=== PATIENT | male | born 1980 | race Caucasian/White ===

== ENCOUNTER 2017-04-28 19:27 | Emergency (ER) | payer OTHER ==
[~2017-04-28] VITALS: Ht 165.1 cm; Wt 97.5 kg
[~2017-04-28 19:27] MED LIST: ALBUTEROL SULF8.5 GM IH; AMOXICILLIN500 M1 PO; AUGMENTIN875 MG PO; BENTYL10 MG PO; CLOTRIM ANTIFUN15 GM TP; FLEXERIL5 MG PO; FLONASE16 G1 BOTH NARES; METHADONE10 MG PO; NAPROSYN500 MG PO; TORADOL10 MG PO; ZANTAC150 MG PO; ZOFRAN4 MG PO; ZYRTEC10 M2 PO
[2017-04-28 20:16] LABS: HEMATOCRIT 50.3 % (38.0-50.0); MCH 30.9 PG (29.0-34.0); MCHC 35.6 G/DL (30.0-36.0); MCV 86.7 FL (86-99); MEAN PLAT.VOLUME 9.9 uM^3 (9.0-12.4); PLATELET COUNT 231 K/uL (156-360); RBC DIS.WIDTH-CV 12.5 % (11.8-14.6); RBC DIS.WIDTH-SD 39.2 % (39-53); WHITE BLOOD COUNT 14.9 K/uL (4.1-10.2)
[2017-04-28 20:27] LABS: CHLORIDE 104 mEq/L (99-109); SODIUM 136 mEq/L (136-147)
[2017-04-28 20:29] LABS: GLUCOSE 102 mg/dL (70-99)
[2017-04-28 20:30] LABS: ANION GAP 13 MEQ/L (2-14)
[2017-04-28 20:33] LABS: GFR ESTIMATE (CALCULATED) > 59 mL/min/
[2017-04-28 20:34] LABS: UREA NITROGEN (BUN) 13 mg/dL (9-23)
[2017-04-28 20:40] LABS: TROP-I INTERPRETATION NEGATIVE; TROPONIN-I < 0.01 ng/mL (0.0-0.30)
[2017-04-28 23:39] LABS: TROP-I INTERPRETATION NEGATIVE; TROPONIN-I < 0.01 ng/mL (0.0-0.30)
[2017-04-28] MEDS ORDERED: ATIVAN0.5 MG PO (23:48)
[2017-04-29 00:41] VITALS: BP 134/93
== END 2017-04-29 00:43 | disposition home or self-care (01) ==
LOC: EME 19:27
PROVIDERS: Emergency Medicine
DX: R07.9 Chest pain, unspecified (principal); F41.9 Anxiety disorder, unspecified; K21.9 Gastro-esophageal reflux disease without esophagitis; F17.200 Nicotine dependence, unspecified, uncomplicated
CPT/HCPCS: 71020; 80048; 84484; 85027; 93005; 99281; 99284

== ENCOUNTER 2017-05-06 20:51 | Emergency (ER) | payer OTHER ==
[~2017-05-06] VITALS: Ht 165.1 cm; Wt 98.3 kg
[~2017-05-06 20:51] MED LIST changes: +ATIVAN0.5 MG PO
[2017-05-06 21:23] LABS: HEMATOCRIT 49.2 % (38.0-50.0); MCH 30.4 PG (29.0-34.0); MCHC 34.6 G/DL (30.0-36.0); MCV 87.9 FL (86-99); MEAN PLAT.VOLUME 10.2 uM^3 (9.0-12.4); PLATELET COUNT 216 K/uL (156-360); RBC DIS.WIDTH-CV 12.6 % (11.8-14.6); RBC DIS.WIDTH-SD 40.5 % (39-53)
[2017-05-06 21:55] LABS: CHLORIDE 106 mEq/L (99-109); SODIUM 140 mEq/L (136-147)
[2017-05-06 21:56] LABS: GLUCOSE 97 mg/dL (70-99)
[2017-05-06 21:58] LABS: ANION GAP 14 MEQ/L (2-14)
[2017-05-06 22:00] LABS: GFR ESTIMATE (CALCULATED) > 59 mL/min/
[2017-05-06 22:01] LABS: TROP-I INTERPRETATION NEGATIVE; TROPONIN-I < 0.01 ng/mL (0.0-0.30); UREA NITROGEN (BUN) 13 mg/dL (9-23)
[2017-05-06 23:55] VITALS: BP 134/102
== END 2017-05-06 23:55 | disposition home or self-care (01) ==
LOC: EME 20:51
DX: R07.9 Chest pain, unspecified (principal); F41.9 Anxiety disorder, unspecified; F17.200 Nicotine dependence, unspecified, uncomplicated
CPT/HCPCS: 71020; 80048; 84484; 85027; 93005; 99281; 99283

== ENCOUNTER 2017-06-26 23:57 | Emergency (ER) | payer OTHER ==
[~2017-06-26] VITALS: Ht 165.1 cm; Wt 97.8 kg
[2017-06-27 00:50] LABS: HEMATOCRIT 51.7 % (38.0-50.0); MCH 31.1 PG (29.0-34.0); MCHC 34.8 G/DL (30.0-36.0); MCV 89.4 FL (86-99); MEAN PLAT.VOLUME 10.6 uM^3 (9.0-12.4); PLATELET COUNT 214 K/uL (156-360); RBC DIS.WIDTH-CV 12.8 % (11.8-14.6); RBC DIS.WIDTH-SD 41.9 % (39-53); RED BLOOD COUNT 5.78 M/uL (4.00-5.50); WHITE BLOOD COUNT 11.7 K/uL (4.1-10.2)
[2017-06-27 00:57] LABS: CHLORIDE 107 mEq/L (99-109); SODIUM 140 mEq/L (136-147)
[2017-06-27 00:59] LABS: GLUCOSE 123 mg/dL (70-99)
[2017-06-27 01:01] LABS: ANION GAP 10 MEQ/L (2-14)
[2017-06-27 01:03] LABS: GFR ESTIMATE (CALCULATED) > 59 mL/min/
[2017-06-27 01:04] LABS: UREA NITROGEN (BUN) 15 mg/dL (9-23)
[2017-06-27 01:10] LABS: TROP-I INTERPRETATION NEGATIVE; TROPONIN-I < 0.01 ng/mL (0.0-0.30)
[2017-06-27] MEDS ORDERED: LISINOPRIL-HCT1 EACH PO (02:26)
[2017-06-27 02:56] VITALS: BP 141/105
== END 2017-06-27 02:56 | disposition home or self-care (01) ==
LOC: EME 23:57
DX: R51 Headache (principal); I10 Essential (primary) hypertension; F41.9 Anxiety disorder, unspecified; Z72.0 Tobacco use
CPT/HCPCS: 70450; 71020; 80048; 84443; 84484; 85027; 93005; 99281; 99284; J1885

== ENCOUNTER 2017-07-07 21:39 | Emergency (ER) | payer OTHER ==
[~2017-07-07] VITALS: Ht 165.1 cm; Wt 97.7 kg
[~2017-07-07 21:39] MED LIST changes: +LISINOPRIL-HCT1 EACH PO
[2017-07-07 22:14] LABS: HEMATOCRIT 50.7 % (38.0-50.0); MCH 31.6 PG (29.0-34.0); MCHC 35.9 G/DL (30.0-36.0); MEAN PLAT.VOLUME 10.8 uM^3 (9.0-12.4); PLATELET COUNT 240 K/uL (156-360); RBC DIS.WIDTH-CV 12.3 % (11.8-14.6); RED BLOOD COUNT 5.76 M/uL (4.00-5.50); WHITE BLOOD COUNT 14.9 K/uL (4.1-10.2)
[2017-07-07 22:24] LABS: CHLORIDE 103 mEq/L (99-109); POTASSIUM 3.9 mEq/L (3.7-5.4); SODIUM 136 mEq/L (136-147)
[2017-07-07 22:26] LABS: GLUCOSE 98 mg/dL (70-99)
[2017-07-07 22:27] LABS: ANION GAP 10 MEQ/L (2-14)
[2017-07-07 22:29] LABS: GFR ESTIMATE (CALCULATED) > 59 mL/min/
[2017-07-07 22:31] LABS: UREA NITROGEN (BUN) 19 mg/dL (9-23)
[2017-07-07 22:37] LABS: TROP-I INTERPRETATION NEGATIVE; TROPONIN-I < 0.01 ng/mL (0.0-0.30)
[2017-07-07 23:32] LABS: D-DIMER ELISA < 150.00 ng/mLDDU (<230)
[2017-07-08 01:19] LABS: TROP-I INTERPRETATION NEGATIVE; TROPONIN-I < 0.01 ng/mL (0.0-0.30)
[2017-07-08 01:34] VITALS: BP 117/80
== END 2017-07-08 01:35 | disposition home or self-care (01) ==
LOC: EME 21:39
PROVIDERS: Physician Assistant
DX: R07.89 Other chest pain (principal); I10 Essential (primary) hypertension; G47.30 Sleep apnea, unspecified; F41.9 Anxiety disorder, unspecified; Z72.0 Tobacco use
CPT/HCPCS: 71020; 80048; 84484; 85027; 85379; 93005; 99281; 99284

== ENCOUNTER 2017-08-01 22:33 | Emergency (ER) | payer OTHER ==
[~2017-08-01] VITALS: Ht 165.1 cm; Wt 97.1 kg
[2017-08-01 23:57] LABS: HEMATOCRIT 47.6 % (38.0-50.0); MCH 30.7 PG (29.0-34.0); MCHC 35.1 G/DL (30.0-36.0); MCV 87.5 FL (86-99); MEAN PLAT.VOLUME 10.7 uM^3 (9.0-12.4); PLATELET COUNT 214 K/uL (156-360); RBC DIS.WIDTH-CV 12.3 % (11.8-14.6); RBC DIS.WIDTH-SD 39.2 % (39-53); RED BLOOD COUNT 5.44 M/uL (4.00-5.50); WHITE BLOOD COUNT 10.7 K/uL (4.1-10.2)
[2017-08-02 00:35] LABS: TROP-I INTERPRETATION NEGATIVE; TROPONIN-I < 0.01 ng/mL (0.0-0.30)
[2017-08-02 00:43] LABS: CHLORIDE 105 mEq/L (99-109); POTASSIUM 3.5 mEq/L (3.7-5.4); SODIUM 138 mEq/L (136-147)
[2017-08-02 00:45] LABS: GLUCOSE 114 mg/dL (70-99)
[2017-08-02 00:46] LABS: ANION GAP 10 MEQ/L (2-14)
[2017-08-02 00:49] LABS: GFR ESTIMATE (CALCULATED) > 59 mL/min/ (58.99-99999)
[2017-08-02 00:50] LABS: UREA NITROGEN (BUN) 18 mg/dL (9-23)
[2017-08-02] MEDS ORDERED: PROVENTIL HFA6.7 GM IH (01:24)
[2017-08-02] MEDS ORDERED: PREDNISONE50 MG PO (01:24)
[2017-08-02 02:17] VITALS: BP 110/72
== END 2017-08-02 02:17 | disposition home or self-care (01) ==
LOC: EME 22:33
DX: J45.909 Unspecified asthma, uncomplicated (principal); R07.9 Chest pain, unspecified; F17.200 Nicotine dependence, unspecified, uncomplicated; I10 Essential (primary) hypertension; F41.9 Anxiety disorder, unspecified
CPT/HCPCS: 71020; 80048; 84484; 85027; 93005; 94640; 99281; 99285; J7512

== ENCOUNTER 2017-08-09 18:24 | Emergency (ER) | payer OTHER ==
[~2017-08-09] VITALS: Ht 165.1 cm; Wt 98.0 kg
[~2017-08-09 18:24] MED LIST changes: +PREDNISONE50 MG PO; +PROVENTIL HFA6.7 GM IH
[2017-08-10 03:05] LABS: BASOPHIL (%) 0.3 % (0-1); BASOPHIL COUNT 0.1 K/uL (0-0.1); EOSINOPHIL (%) 1.1 % (0-5); EOSINOPHIL COUNT 0.2 K/uL (0-0.3); HEMATOCRIT 49.6 % (38.0-50.0); HEMOGLOBIN 17.7 G/DL (12.5-16.6); IMMATURE GRANULOCYTE (%) 0.6 % (0.0-0.7); LYMPHOCYTE (%) 30.4 % (15-42); LYMPHOCYTE COUNT 5.4 K/uL (1.0-2.8); MCHC 35.7 G/DL (30.0-36.0); MCV 86.9 FL (86-99); MONOCYTE (%) 8.8 % (3-12); MONOCYTE COUNT 1.6 K/uL (0-0.8); NEUTROPHIL (%) 58.8 % (45-76); NEUTROPHIL COUNT 10.4 K/uL (1.8-6.4); PLATELET COUNT 250 K/uL (156-360); RBC DIS.WIDTH-CV 12.6 % (11.8-14.6); RBC DIS.WIDTH-SD 39.2 % (39-53); RED BLOOD COUNT 5.71 M/uL (4.00-5.50); WHITE BLOOD COUNT 17.8 K/uL (4.1-10.2)
[2017-08-10 03:15] LABS: D-DIMER ELISA < 150.00 ng/mLDDU (<230)
[2017-08-10 03:16] LABS: CHLORIDE 97 mEq/L (99-109); POTASSIUM 3.3 mEq/L (3.7-5.4); SODIUM 137 mEq/L (136-147)
[2017-08-10 03:18] LABS: GLUCOSE 119 mg/dL (70-99)
[2017-08-10 03:22] LABS: GFR ESTIMATE (CALCULATED) > 59 mL/min/ (58.99-99999)
[2017-08-10 03:23] LABS: UREA NITROGEN (BUN) 22 mg/dL (9-23)
[2017-08-10 03:26] LABS: TROP-I INTERPRETATION NEGATIVE; TROPONIN-I < 0.01 ng/mL (0.0-0.30)
[2017-08-10] MEDS ORDERED: AUGMENTIN875 MG PO (04:42)
[2017-08-10] MEDS ORDERED: FIORICET 50-301 EAC1 PO (04:42)
[2017-08-10 04:52] VITALS: BP 151/103
== END 2017-08-10 04:53 | disposition home or self-care (01) ==
LOC: EME 18:24
PROVIDERS: Emergency Medicine
DX: J01.90 Acute sinusitis, unspecified (principal); R07.9 Chest pain, unspecified; I10 Essential (primary) hypertension; F41.9 Anxiety disorder, unspecified; Z72.0 Tobacco use
CPT/HCPCS: 71046; 80048; 84484; 85025; 85379; 93005; 99281; 99284

== ENCOUNTER 2017-08-29 00:55 | Emergency (ER) | payer OTHER ==
[~2017-08-29] VITALS: Ht 165.1 cm; Wt 98.7 kg
[~2017-08-29 00:55] MED LIST changes: +FIORICET 50-301 EAC1 PO
[2017-08-29 01:49] LABS: HEMATOCRIT 50.6 % (38.0-50.0); HEMOGLOBIN 17.7 G/DL (12.5-16.6); MCH 31.3 PG (29.0-34.0); MCV 89.6 FL (86-99); PLATELET COUNT 217 K/uL (156-360); RBC DIS.WIDTH-CV 12.8 % (11.8-14.6); RBC DIS.WIDTH-SD 41.9 % (39-53); RED BLOOD COUNT 5.65 M/uL (4.00-5.50); WHITE BLOOD COUNT 10.3 K/uL (4.1-10.2)
[2017-08-29 02:02] LABS: ALBUMIN 4.4 g/dL (3.2-4.8)
[2017-08-29 02:03] LABS: CHLORIDE 104 mEq/L (99-109); POTASSIUM 4.4 mEq/L (3.7-5.4); SODIUM 138 mEq/L (136-147)
[2017-08-29 02:05] LABS: GLUCOSE 96 mg/dL (70-99); TOTAL PROTEIN 7.2 g/dL (6.4-8.3)
[2017-08-29 02:07] LABS: TOTAL BILIRUBIN 0.4 mg/dL (0.0-1.0)
[2017-08-29 02:08] LABS: ALKALINE PHOSPHATASE 59 IU/L (3-129)
[2017-08-29 02:09] LABS: GFR ESTIMATE (CALCULATED) > 59 mL/min/ (58.99-99999)
[2017-08-29 02:10] LABS: AST (GOT) 17 IU/L (2-34); UREA NITROGEN (BUN) 18 mg/dL (9-23)
[2017-08-29 02:11] LABS: ALT (GPT) 30 IU/L (3-49)
[2017-08-29 05:30] LABS: APPEARANCE CLEAR ((CLEAR)); BILIRUBIN NEGATIVE; BLOOD NEGATIVE; COLOR YELLOW ((YELLOW)); GLUCOSE (STRIP) NEGATIVE; KETONES NEGATIVE; LEUKOCYTES NEGATIVE; NITRITE NEGATIVE; PROTEIN (STRIP) NEGATIVE; UCUL ADDED? NO; UROBILINOGEN 0.2 MG/DL (0.2-1.0)
[2017-08-29 06:31] VITALS: BP 115/78
== END 2017-08-29 06:32 | disposition home or self-care (01) ==
LOC: EME 00:55
DX: K62.5 Hemorrhage of anus and rectum (principal); I10 Essential (primary) hypertension; F41.9 Anxiety disorder, unspecified; F17.200 Nicotine dependence, unspecified, uncomplicated
CPT/HCPCS: 74177; 80053; 81003; 85027; 99281; 99285; J7030

== ENCOUNTER 2017-09-13 12:18 | Emergency (ER) | payer OTHER ==
[~2017-09-13] VITALS: Ht 165.1 cm; Wt 98.9 kg
[2017-09-13 12:49] LABS: HEMOGLOBIN 17.9 G/DL (12.5-16.6); MCH 31.5 PG (29.0-34.0); MCHC 35.8 G/DL (30.0-36.0); PLATELET COUNT 222 K/uL (156-360); RBC DIS.WIDTH-CV 12.6 % (11.8-14.6); RBC DIS.WIDTH-SD 40.9 % (39-53); RED BLOOD COUNT 5.68 M/uL (4.00-5.50); WHITE BLOOD COUNT 11.6 K/uL (4.1-10.2)
[2017-09-13 13:01] LABS: CHLORIDE 104 mEq/L (99-109); SODIUM 137 mEq/L (136-147)
[2017-09-13 13:03] LABS: GLUCOSE 111 mg/dL (70-99)
[2017-09-13 13:06] LABS: GFR ESTIMATE (CALCULATED) > 59 mL/min/ (58.99-99999)
[2017-09-13 13:07] LABS: UREA NITROGEN (BUN) 13 mg/dL (9-23)
[2017-09-13 13:12] LABS: TROP-I INTERPRETATION NEGATIVE; TROPONIN-I < 0.01 ng/mL (0.0-0.30)
[2017-09-13 15:56] VITALS: BP 142/94
== END 2017-09-13 15:58 | disposition home or self-care (01) ==
LOC: EME 12:18
DX: R51 Headache (principal); I10 Essential (primary) hypertension; F17.200 Nicotine dependence, unspecified, uncomplicated; F41.9 Anxiety disorder, unspecified
CPT/HCPCS: 70450; 71046; 80048; 84484; 85027; 93005; 99281; 99284

== ENCOUNTER 2017-10-03 10:38 | Emergency (ER) | payer OTHER ==
[~2017-10-03] VITALS: Ht 165.1 cm; Wt 97.9 kg
[2017-10-03 11:04] VITALS: BP 136/96
== END 2017-10-03 12:08 | disposition left against medical advice (07) ==
LOC: EME 10:38
DX: K92.1 Melena (principal); Z53.21 Procedure and treatment not carried out due to patient leaving prior to being seen by health care provider

== ENCOUNTER 2017-10-05 04:54 | Emergency (ER) | payer OTHER ==
[~2017-10-05] VITALS: Ht 165.1 cm; Wt 99.3 kg
[2017-10-05] MEDS ORDERED: NAPROSYN500 MG PO (06:34)
[2017-10-05] MEDS ORDERED: LIDOCAINE20 MG/1 M5 PO (06:34)
[2017-10-05 06:55] VITALS: BP 139/89
== END 2017-10-05 06:56 | disposition home or self-care (01) ==
LOC: EME 04:54
DX: J02.9 Acute pharyngitis, unspecified (principal); R51 Headache; F17.200 Nicotine dependence, unspecified, uncomplicated
CPT/HCPCS: 87651 90; 99281; 99284

== ENCOUNTER 2017-10-30 23:58 | Emergency (ER) | payer OTHER ==
[~2017-10-30] VITALS: Ht 165.1 cm; Wt 98.8 kg
[~2017-10-30 23:58] MED LIST changes: +LIDOCAINE20 MG/1 M5 PO
[2017-10-31 00:04] VITALS: BP 146/96
== END 2017-10-31 00:48 | disposition left against medical advice (07) ==
LOC: EME 23:58
DX: R07.81 Pleurodynia (principal); R07.1 Chest pain on breathing; Z53.21 Procedure and treatment not carried out due to patient leaving prior to being seen by health care provider
CPT/HCPCS: 93005

== ENCOUNTER 2017-11-09 23:47 | Emergency (ER) | payer OTHER ==
[~2017-11-09] VITALS: Ht 165.1 cm; Wt 99.4 kg
[2017-11-10 00:34] LABS: BASOPHIL (%) 0.5 % (0-1); BASOPHIL COUNT 0.1 K/uL (0-0.1); EOSINOPHIL (%) 1.5 % (0-5); EOSINOPHIL COUNT 0.2 K/uL (0-0.3); HEMATOCRIT 50.4 % (38.0-50.0); HEMOGLOBIN 17.6 G/DL (12.5-16.6); IMMATURE GRANULOCYTE (%) 0.3 % (0.0-0.7); LYMPHOCYTE (%) 30.4 % (15-42); LYMPHOCYTE COUNT 3.8 K/uL (1.0-2.8); MCH 32.4 PG (29.0-34.0); MCHC 34.9 G/DL (30.0-36.0); MCV 92.8 FL (86-99); MONOCYTE (%) 8.4 % (3-12); NEUTROPHIL (%) 58.9 % (45-76); NEUTROPHIL COUNT 7.3 K/uL (1.8-6.4); PLATELET COUNT 207 K/uL (156-360); RBC DIS.WIDTH-CV 13.3 % (11.8-14.6); RBC DIS.WIDTH-SD 45.1 % (39-53); RED BLOOD COUNT 5.43 M/uL (4.00-5.50); WHITE BLOOD COUNT 12.4 K/uL (4.1-10.2)
[2017-11-10 00:39] LABS: INTER. NORMALIZED RATIO 0.9
[2017-11-10 00:41] LABS: PTT 30.5 SEC (25-37)
[2017-11-10 00:45] LABS: ALBUMIN 4.3 g/dL (3.2-4.8); CHLORIDE 106 mEq/L (99-109); POTASSIUM 4.1 mEq/L (3.7-5.4); SODIUM 139 mEq/L (136-147)
[2017-11-10 00:46] LABS: MAGNESIUM 2.3 mg/dL (1.3-2.7)
[2017-11-10 00:48] LABS: GLUCOSE 119 mg/dL (70-99); TOTAL PROTEIN 7.2 g/dL (6.4-8.3)
[2017-11-10 00:50] LABS: TOTAL BILIRUBIN 0.2 mg/dL (0.0-1.0)
[2017-11-10 00:51] LABS: ALKALINE PHOSPHATASE 59 IU/L (3-129)
[2017-11-10 00:52] LABS: GFR ESTIMATE (CALCULATED) > 59 mL/min/ (58.99-99999)
[2017-11-10 00:53] LABS: AST (GOT) 14 IU/L (2-34); UREA NITROGEN (BUN) 15 mg/dL (9-23)
[2017-11-10 00:55] LABS: ALT (GPT) 22 IU/L (3-49)
[2017-11-10 01:39] LABS: APPEARANCE CLEAR ((CLEAR)); BILIRUBIN NEGATIVE; BLOOD NEGATIVE; COLOR YELLOW ((YELLOW)); GLUCOSE (STRIP) NEGATIVE; KETONES NEGATIVE; LEUKOCYTES NEGATIVE; NITRITE NEGATIVE; PROTEIN (STRIP) NEGATIVE; SPECIFIC GRAVITY 1.028 (1.000-1.030); UCUL ADDED? NO
[2017-11-10 02:38] VITALS: BP 124/87
== END 2017-11-10 02:39 | disposition home or self-care (01) ==
LOC: EME 23:47
PROVIDERS: Emergency Medicine
DX: K62.5 Hemorrhage of anus and rectum (principal); K52.9 Noninfective gastroenteritis and colitis, unspecified; I10 Essential (primary) hypertension; F41.9 Anxiety disorder, unspecified; F17.200 Nicotine dependence, unspecified, uncomplicated
CPT/HCPCS: 80053; 81003; 83735; 85025; 85610; 85730; 99281; 99285; J7040

== ENCOUNTER 2017-12-01 11:47 | Emergency (ER) | payer OTHER ==
[~2017-12-01] VITALS: Ht 165.1 cm; Wt 100.1 kg
[2017-12-01 15:34] LABS: HEMOGLOBIN 17.8 G/DL (12.5-16.6); MCHC 34.9 G/DL (30.0-36.0); MCV 91.6 FL (86-99); PLATELET COUNT 209 K/uL (156-360); RBC DIS.WIDTH-CV 12.9 % (11.8-14.6); RBC DIS.WIDTH-SD 43.1 % (39-53); RED BLOOD COUNT 5.57 M/uL (4.00-5.50); WHITE BLOOD COUNT 10.3 K/uL (4.1-10.2)
[2017-12-01 15:44] LABS: D-DIMER ELISA < 150.00 ng/mLDDU (<230)
[2017-12-01 16:06] LABS: TROP-I INTERPRETATION NEGATIVE; TROPONIN-I 0.02 ng/mL (0.0-0.30)
[2017-12-01 16:14] LABS: CHLORIDE 101 MEQ/L (99-109); GFR ESTIMATE (CALCULATED) > 59 mL/min/ (58.99-99999); GLUCOSE 92 mg/dL (70-99); POTASSIUM 4.8 MEQ/L (3.7-5.4); SODIUM 134 MEQ/L (136-147); UREA NITROGEN (BUN) 11 mg/dL (9-23)
[2017-12-01 17:41] VITALS: BP 133/97
[2017-12-02] MEDS ORDERED: FLEXERIL10 MG PO (03:56)
== END 2017-12-01 17:42 | disposition left against medical advice (07) ==
LOC: EME 11:47
PROVIDERS: Physician Assistant Medical
DX: R07.9 Chest pain, unspecified (principal); M54.9 Dorsalgia, unspecified; R11.2 Nausea with vomiting, unspecified; R06.02 Shortness of breath; F17.200 Nicotine dependence, unspecified, uncomplicated; Z53.20 Procedure and treatment not carried out because of patient's decision for unspecified reasons
CPT/HCPCS: 71046; 80048; 84484; 85027; 85379; 93005; 99281; 99284; J1885

== ENCOUNTER 2017-12-02 00:01 | Emergency (ER) | payer OTHER ==
[~2017-12-02] VITALS: Ht 165.1 cm; Wt 100.7 kg
[2017-12-02 00:56] LABS: HEMATOCRIT 48.2 % (38.0-50.0); HEMOGLOBIN 17.2 G/DL (12.5-16.6); MCH 32.6 PG (29.0-34.0); MCHC 35.7 G/DL (30.0-36.0); MCV 91.5 FL (86-99); PLATELET COUNT 203 K/uL (156-360); RBC DIS.WIDTH-CV 12.7 % (11.8-14.6); RBC DIS.WIDTH-SD 42.9 % (39-53); RED BLOOD COUNT 5.27 M/uL (4.00-5.50); WHITE BLOOD COUNT 12.3 K/uL (4.1-10.2)
[2017-12-02 01:07] LABS: CHLORIDE 105 mEq/L (99-109); POTASSIUM 4.1 mEq/L (3.7-5.4); SODIUM 139 mEq/L (136-147)
[2017-12-02 01:08] LABS: GLUCOSE 95 mg/dL (70-99)
[2017-12-02 01:12] LABS: GFR ESTIMATE (CALCULATED) > 59 mL/min/ (58.99-99999)
[2017-12-02 01:13] LABS: UREA NITROGEN (BUN) 15 mg/dL (9-23)
[2017-12-02 01:16] LABS: TROP-I INTERPRETATION NEGATIVE; TROPONIN-I < 0.01 ng/mL (0.0-0.30)
[2017-12-02] MEDS ORDERED: FLEXERIL10 MG PO (03:56)
[2017-12-02 04:43] VITALS: BP 116/84
== END 2017-12-02 04:43 | disposition home or self-care (01) ==
LOC: EME 00:01
PROC: 3E0U3BZ Introduction of Anesthetic Agent into Joints, Percutaneous Approach (ICD-10-PCS; principal; 2017-12-02)
DX: M25.512 Pain in left shoulder (principal); I10 Essential (primary) hypertension; F41.9 Anxiety disorder, unspecified; F17.200 Nicotine dependence, unspecified, uncomplicated
CPT/HCPCS: 80048; 84484; 85027; 93005; 99281; 99284

== ENCOUNTER 2017-12-05 00:51 | Emergency (ER) | payer OTHER ==
[~2017-12-05] VITALS: Ht 165.1 cm; Wt 102.4 kg
[~2017-12-05 00:51] MED LIST changes: +FLEXERIL10 MG PO
[2017-12-05 01:51] LABS: HEMATOCRIT 50.2 % (38.0-50.0); HEMOGLOBIN 17.6 G/DL (12.5-16.6); MCH 32.2 PG (29.0-34.0); MCHC 35.1 G/DL (30.0-36.0); MCV 91.8 FL (86-99); PLATELET COUNT 204 K/uL (156-360); RBC DIS.WIDTH-CV 12.5 % (11.8-14.6); RBC DIS.WIDTH-SD 42.5 % (39-53); RED BLOOD COUNT 5.47 M/uL (4.00-5.50); WHITE BLOOD COUNT 12.3 K/uL (4.1-10.2)
[2017-12-05 02:16] LABS: TROP-I INTERPRETATION NEGATIVE; TROPONIN-I < 0.01 ng/mL (0.0-0.30)
[2017-12-05 02:20] LABS: ALBUMIN 4.3 G/DL (3.2-4.8); ALKALINE PHOSPHATASE 48 IU/L (3-129); ALT (GPT) 21 IU/L (3-49); AST (GOT) 16 IU/L (2-34); CHLORIDE 102 MEQ/L (99-109); GFR ESTIMATE (CALCULATED) > 59 mL/min/ (58.99-99999); GLUCOSE 90 mg/dL (70-99); SODIUM 136 MEQ/L (136-147); TOTAL BILIRUBIN 0.6 MG/DL (0.0-1.0); TOTAL PROTEIN 7.2 G/DL (6.4-8.3); UREA NITROGEN (BUN) 15 mg/dL (9-23)
[2017-12-05 02:59] VITALS: BP 123/93
== END 2017-12-05 02:59 | disposition home or self-care (01) ==
LOC: EME 00:51
PROVIDERS: Physician Assistant
DX: I10 Essential (primary) hypertension (principal); F41.9 Anxiety disorder, unspecified; F17.200 Nicotine dependence, unspecified, uncomplicated
CPT/HCPCS: 80053; 84484; 85027; 93005; 99281; 99285

== ENCOUNTER 2017-12-19 19:07 | Emergency (ER) | payer OTHER ==
[~2017-12-19] VITALS: Ht 165.1 cm; Wt 99.0 kg
[2017-12-19 19:59] LABS: HEMATOCRIT 49.9 % (38.0-50.0); HEMOGLOBIN 17.9 G/DL (12.5-16.6); MCHC 35.9 G/DL (30.0-36.0); MCV 89.3 FL (86-99); PLATELET COUNT 217 K/uL (156-360); RBC DIS.WIDTH-CV 12.5 % (11.8-14.6); RBC DIS.WIDTH-SD 41.3 % (39-53); RED BLOOD COUNT 5.59 M/uL (4.00-5.50); WHITE BLOOD COUNT 12.2 K/uL (4.1-10.2)
[2017-12-19 20:08] LABS: CHLORIDE 102 mEq/L (99-109); SODIUM 135 mEq/L (136-147)
[2017-12-19 20:10] LABS: GLUCOSE 95 mg/dL (70-99)
[2017-12-19 20:13] LABS: GFR ESTIMATE (CALCULATED) > 59 mL/min/ (58.99-99999)
[2017-12-19 20:14] LABS: UREA NITROGEN (BUN) 13 mg/dL (9-23)
[2017-12-19 20:19] LABS: TROP-I INTERPRETATION NEGATIVE; TROPONIN-I < 0.01 ng/mL (0.0-0.30)
[2017-12-19 21:34] VITALS: BP 118/93
== END 2017-12-19 21:35 | disposition home or self-care (01) ==
LOC: EME 19:07
DX: R07.89 Other chest pain (principal); F41.9 Anxiety disorder, unspecified; R94.31 Abnormal electrocardiogram [ECG] [EKG]; I10 Essential (primary) hypertension; F17.200 Nicotine dependence, unspecified, uncomplicated; Z87.19 Personal history of other diseases of the digestive system
CPT/HCPCS: 71046; 80048; 84484; 85027; 93005; 99281; 99283

== ENCOUNTER 2018-01-28 23:51 | Emergency (ER) | payer OTHER ==
[~2018-01-28] VITALS: Ht 165.1 cm; Wt 101.5 kg
[2018-01-29] MEDS ORDERED: LISINOPRIL5 MG PO (00:21)
[2018-01-29] MEDS ORDERED: FAMOTIDINE20 MG PO (00:21)
[2018-01-29] MEDS ORDERED: HYDROCHLOROTH12.5 M3 PO (00:21)
[2018-01-29 00:43] LABS: HEMATOCRIT 46.8 % (38.0-50.0); HEMOGLOBIN 16.9 G/DL (12.5-16.6); MCH 32.4 PG (29.0-34.0); MCHC 36.1 G/DL (30.0-36.0); MCV 89.7 FL (86-99); PLATELET COUNT 200 K/uL (156-360); RBC DIS.WIDTH-CV 12.6 % (11.8-14.6); RBC DIS.WIDTH-SD 41.3 % (39-53); RED BLOOD COUNT 5.22 M/uL (4.00-5.50); WHITE BLOOD COUNT 12.8 K/uL (4.1-10.2)
[2018-01-29 00:51] LABS: D-DIMER ELISA < 150.00 ng/mLDDU (<230)
[2018-01-29 01:04] LABS: CHLORIDE 100 mEq/L (99-109); POTASSIUM 3.5 mEq/L (3.7-5.4); SODIUM 136 mEq/L (136-147)
[2018-01-29 01:06] LABS: GLUCOSE 123 mg/dL (70-99)
[2018-01-29 01:10] LABS: CREATININE 0.9 mg/dL (0.6-1.3); GFR ESTIMATE (CALCULATED) > 59 mL/min/ (58.99-99999); UREA NITROGEN (BUN) 14 mg/dL (9-23)
[2018-01-29 01:16] LABS: TROP-I INTERPRETATION NEGATIVE; TROPONIN-I 0.02 ng/mL (0.0-0.30)
[2018-01-29 01:42] LABS: CREATINE KINASE 68 IU/L (1-294)
[2018-01-29 01:42] LABS: APPEARANCE CLEAR ((CLEAR)); BILIRUBIN NEGATIVE; BLOOD NEGATIVE; COLOR YELLOW ((YELLOW)); GLUCOSE (STRIP) NEGATIVE; KETONES NEGATIVE; LEUKOCYTES NEGATIVE; NITRITE NEGATIVE; PROTEIN (STRIP) NEGATIVE; SPECIFIC GRAVITY 1.018 (1.000-1.030); UCUL ADDED? NO; UROBILINOGEN 0.2 MG/DL (0.2-1.0)
[2018-01-29 01:44] LABS: ALBUMIN 4.2 g/dL (3.2-4.8)
[2018-01-29 01:47] LABS: TOTAL PROTEIN 7.1 g/dL (6.4-8.3)
[2018-01-29 01:49] LABS: TOTAL BILIRUBIN 0.5 mg/dL (0.0-1.0)
[2018-01-29 01:50] LABS: ALKALINE PHOSPHATASE 55 IU/L (3-129)
[2018-01-29 01:52] LABS: AST (GOT) 16 IU/L (2-34)
[2018-01-29 01:53] LABS: ALT (GPT) 22 IU/L (3-49); DIRECT BILIRUBIN 0.2 mg/dL (0.0-0.3)
[2018-01-29 01:57] LABS: AMPHETAMINE NEGATIVE (500 ng/mL); BARBITURATES NEGATIVE (200 ng/mL); BENZODIAZEPINES NEGATIVE (150 ng/mL); COCAINE NEGATIVE (150 ng/mL); METHADONE NEGATIVE (200 ng/mL); METHAMPHETAMINE NEGATIVE (500 ng/mL); OPIATES (MORPHINE) NEGATIVE (100 ng/mL); OXYCODONE NEGATIVE (100 ng/mL); PHENCYCLIDINE NEGATIVE (25 ng/mL); THC CANNABINOIDS NEGATIVE (50 ng/mL); TRICYCLIC ANTIDEPRESSANTS NEGATIVE (300 ng/mL)
[2018-01-29 01:58] LABS: BUPRENORPHINE NEGATIVE (10 ng/mL); PROPOXYPHENE NEGATIVE (300 ng/mL)
[2018-01-29 02:48] LABS: TROP-I INTERPRETATION NEGATIVE; TROPONIN-I 0.05 ng/mL (0.0-0.30)
[2018-01-29] MEDS ORDERED: ATARAX,VISTARIL25 MG PO (02:52)
[2018-01-29] MEDS ORDERED: PEPCID20 MG PO (02:52)
[2018-01-29 03:08] VITALS: BP 118/72
== END 2018-01-29 03:10 | disposition home or self-care (01) ==
LOC: EME 23:51
PROVIDERS: Emergency Medicine
DX: R07.89 Other chest pain (principal); M94.0 Chondrocostal junction syndrome [Tietze]; F41.1 Generalized anxiety disorder; R06.02 Shortness of breath; I10 Essential (primary) hypertension; F17.200 Nicotine dependence, unspecified, uncomplicated
CPT/HCPCS: 71046; 80048; 80076; 81003; 82550; 84484; 85027; 85379; 93005; 99281; 99285; Q0177

== ENCOUNTER 2018-03-15 20:15 | Emergency (ER) | payer OTHER ==
[~2018-03-15] VITALS: Ht 165.1 cm; Wt 99.9 kg
[~2018-03-15 20:15] MED LIST changes: +ATARAX,VISTARIL25 MG PO; +FAMOTIDINE20 MG PO; +HYDROCHLOROTH12.5 M3 PO; +LISINOPRIL5 MG PO; +PEPCID20 MG PO
[2018-03-15 20:41] LABS: HEMATOCRIT 48.7 % (38.0-50.0); HEMOGLOBIN 17.2 G/DL (12.5-16.6); MCH 31.5 PG (29.0-34.0); MCHC 35.3 G/DL (30.0-36.0); MCV 89.2 FL (86-99); PLATELET COUNT 211 K/uL (156-360); RED BLOOD COUNT 5.46 M/uL (4.00-5.50); WHITE BLOOD COUNT 12.6 K/uL (4.1-10.2)
[2018-03-15 20:53] LABS: CHLORIDE 101 mEq/L (99-109); POTASSIUM 3.7 mEq/L (3.7-5.4)
[2018-03-15 20:54] LABS: SODIUM 136 mEq/L (136-147)
[2018-03-15 20:55] LABS: GLUCOSE 109 mg/dL (70-99)
[2018-03-15 20:59] LABS: CREATININE 0.9 mg/dL (0.6-1.3); GFR ESTIMATE (CALCULATED) > 59 mL/min/ (58.99-99999)
[2018-03-15 21:00] LABS: UREA NITROGEN (BUN) 11 mg/dL (9-23)
[2018-03-15 21:05] LABS: TROP-I INTERPRETATION NEGATIVE; TROPONIN-I < 0.01 ng/mL (0.0-0.30)
[2018-03-16 00:28] LABS: TROP-I INTERPRETATION NEGATIVE; TROPONIN-I < 0.01 ng/mL (0.0-0.30)
[2018-03-16] MEDS ORDERED: PREDNISONE20 MG PO (01:13)
[2018-03-16 01:26] VITALS: BP 130/76
== END 2018-03-16 01:27 | disposition home or self-care (01) ==
LOC: EME 20:15
PROVIDERS: Physician Assistant
DX: J40 Bronchitis, not specified as acute or chronic (principal); R07.89 Other chest pain; F17.210 Nicotine dependence, cigarettes, uncomplicated; Z71.6 Tobacco abuse counseling; I10 Essential (primary) hypertension; F41.9 Anxiety disorder, unspecified
CPT/HCPCS: 71046; 80048; 84484; 85027; 93005; 99281; 99283; J7512